=== PATIENT | female | born 2000 | race Caucasian/White ===

== ENCOUNTER → 2020-02-22 | Outpatient (CLI) | payer BC ==
[~2020-02-22] MED LIST: BENADRYL25 MG PO; MOTRIN IB200 M1 PO; NKHM; PREDNISONE10 MG PO
== END | disposition home or self-care (01) ==
LOC: COVID19 15:23
PROVIDERS: ATTEND Internal Medicine
DX: Z20.828 Contact with and (suspected) exposure to other viral communicable diseases (principal)

== ENCOUNTER 2021-08-12 16:39 | Emergency (ER) | payer SELFPAY ==
[~2021-08-12] VITALS: Wt 72.6 kg
[2021-08-12] MEDS ORDERED: CLEOCIN HCL300 MG PO (17:25)
[2021-08-12] MEDS ORDERED: Motrin,Rufen800 MG PO (18:46)
== END 2021-08-12 17:30 | disposition home or self-care (01) ==
LOC: ED 16:39
DX: K04.7 Periapical abscess without sinus (principal); Z88.1 Allergy status to other antibiotic agents

== ENCOUNTER 2022-09-22 14:02 | Emergency (ER) | payer OTHER ==
[~2022-09-22] VITALS: Ht 160 cm; Wt 76.2 kg
[~2022-09-22 14:02] MED LIST changes: +CLEOCIN HCL300 MG PO; +Motrin,Rufen800 MG PO
[2022-09-22 14:56] LABS: BASO % 0.3 % (0.0-1.0); EOS # 0.1 10*3/uL (0.0-0.4); EOS % 0.5 % (1.0-4.0); HEMATOCRIT 43.8 % (37.0-47.0); LYMPH # 1.3 10*3/uL (1.3-4.4); LYMPH % 12.2 % (27.0-41.0); MEAN CELL VOLUME 92.8 fl (81.0-99.0); MEAN CORPUSCULAR HGB 31.4 pg (27.0-31.0); MEAN CORPUSCULAR HGB CONC 33.8 g/dl (33.0-37.0); MEAN PLATELET VOLUME 9.3 fl (9.6-12.3); MONO # 0.6 10*3/uL (0.1-1.0); MONO % 5.4 % (3.0-9.0); NEUT # 8.7 10*3/uL (2.3-7.9); NEUT % 81.4 % (47.0-73.0); PLATELET COUNT AUTOMATED 314 10*3/uL (130-400); RED BLOOD COUNT 4.72 10*6/uL (4.10-5.10); RED CELL DISTRI WIDTH 14.5 % (0-14.5); WHITE BLOOD COUNT 10.7 10*3/uL (4.8-10.8)
[2022-09-22 15:20] LABS: ALKALINE PHOSPHATASE 59 U/L (46-116); BUN 8 mg/dl (9-23); CHLORIDE 106 mmol/L (98-107); POTASSIUM 3.6 mmol/L (3.4-5.1); SGPT/ALT 16 U/L (10-49)
[2022-09-22 15:42] LABS: BILIRUBIN 1+ (Negative); BLOOD 3+ (Negative); CLARITY Turbid (Clear); COLOR Red (Yellow); GLUCOSE Negative (Negative); KETONE Negative (Negative); LEUKO ESTERASE 2+ (Negative); NITRITE Negative (Negative); PH 7.5 (4.5-8.0); SPECIFIC GRAVITY 1.025 (1.001-1.030)
[2022-09-22 15:43] LABS: RBC TNTC rbc/hpf (0-2)
[2022-09-22 15:51] LABS: EPITHELIAL CELLS 0-2
[2022-09-22 15:52] LABS: BACTERIA 2+
[2022-09-22] MEDS ORDERED: MELOXICAM15 MG PO (16:03)
[2022-09-22] MEDS ORDERED: CIPRO500 MG PO (16:03)
[2022-09-22] MEDS ORDERED: ONDANSETRON4 MG SL (16:03)
== END 2022-09-22 16:18 | disposition home or self-care (01) ==
LOC: ED 14:02
PROVIDERS: Emergency Medicine
DX: N93.8 Other specified abnormal uterine and vaginal bleeding (principal); N39.0 Urinary tract infection, site not specified; Z88.1 Allergy status to other antibiotic agents

== ENCOUNTER 2023-02-15 12:27 | Emergency (ER) | payer OTHER ==
[~2023-02-15] VITALS: Ht 167.6 cm; Wt 72.6 kg
[~2023-02-15 12:27] MED LIST changes: +CIPRO500 MG PO; +MELOXICAM15 MG PO; +ONDANSETRON4 MG SL
[2023-02-15 16:53] LABS: HEMATOCRIT 40.3 % (37.0-47.0); MEAN CORPUSCULAR HGB 32.5 pg (27.0-31.0); MEAN CORPUSCULAR HGB CONC 34.2 g/dl (33.0-37.0); MEAN PLATELET VOLUME 9.1 fl (9.6-12.3); PLATELET COUNT AUTOMATED 317 10*3/uL (130-400); RED BLOOD COUNT 4.24 10*6/uL (4.10-5.10); RED CELL DISTRI WIDTH 14.1 % (0-14.5); WHITE BLOOD COUNT 12.2 10*3/uL (4.8-10.8)
[2023-02-15 17:02] LABS: MANUAL DIFF REFLEX YES
[2023-02-15 17:13] LABS: BASOPHILS 1 % (0-1); PLATELET SUFFICIENCY NORMAL (NORMAL); TOTAL CELLS COUNTED 100 #CELLS
[2023-02-15 17:15] LABS: BURR CELLS FEW
[2023-02-15 17:15] LABS: ALKALINE PHOSPHATASE 53 U/L (46-116); BUN 18 mg/dl (9-23); CHLORIDE 106 mmol/L (98-107); LIPASE 27 U/L (12-53); POTASSIUM 3.8 mmol/L (3.4-5.1); SGPT/ALT 11 U/L (5-49); TOTAL PROTEIN 6.8 gm/dL (6.0-8.0)
[2023-02-15 17:19] LABS: BETA-HCG, QUANT < 3.0 mIU/mL (3-10)
[2023-02-15 18:38] LABS: BILIRUBIN Negative (Negative); BLOOD Negative (Negative); CLARITY Clear (Clear); COLOR Yellow (Yellow); GLUCOSE Negative (Negative); KETONE 1+ (Negative); LEUKO ESTERASE Negative (Negative); NITRITE Negative (Negative); PH 5.5 (4.5-8.0); UROBILINOGEN 0.2 E.U./dl (0.0-1.0)
[2023-02-15 18:47] LABS: BACTERIA 2+
[2023-02-15] MEDS ORDERED: ONDANSETRON4 MG SL (20:04)
[2023-02-15] MEDS ORDERED: SEPTDS PO (20:04)
== END 2023-02-15 20:18 | disposition home or self-care (01) ==
LOC: ED 12:27
PROVIDERS: Nurse Practitioner
DX: N39.0 Urinary tract infection, site not specified (principal); N17.9 Acute kidney failure, unspecified; R11.2 Nausea with vomiting, unspecified; Z88.1 Allergy status to other antibiotic agents; Z79.2 Long term (current) use of antibiotics; Z79.899 Other long term (current) drug therapy

== ENCOUNTER 2024-08-21 17:13 | Emergency (ER) | payer SELFPAY ==
[~2024-08-21] VITALS: Wt 76.2 kg
[~2024-08-21 17:13] MED LIST changes: +SEPTDS PO
[2024-08-21] MEDS ORDERED: Ondansetron Hydrochloride 4 MG TAB PO ONE (17:40)
[2024-08-21] MEDS ORDERED: Acetaminophen/Hydrocodone 5 MG/325 MG TABLET PO ONE ×2 (17:40→18:55)
[2024-08-21 18:27] LABS: BILIRUBIN Negative (Negative); BLOOD 3+ (Negative); CLARITY Cloudy (Clear); COLOR Yellow (Yellow); GLUCOSE Negative (Negative); KETONE 1+ (Negative); LEUKO ESTERASE Trace (Negative); NITRITE Negative (Negative); SPECIFIC GRAVITY >= 1.030 (1.001-1.030)
[2024-08-21 18:36] LABS: BACTERIA 2+; RBC 51-100 rbc/hpf (0-2)
== END 2024-08-21 19:15 | disposition home or self-care (01) ==
LOC: ED 17:13
PROVIDERS: Nurse Practitioner Family
DX: N94.6 Dysmenorrhea, unspecified (principal); Z88.1 Allergy status to other antibiotic agents; Z79.899 Other long term (current) drug therapy

== ENCOUNTER 2024-11-28 15:50 | Emergency (ER) | payer SELFPAY ==
[~2024-11-28] VITALS: Ht 167.6 cm; Wt 74.8 kg
[2024-11-28] MEDS ORDERED: Acetaminophen/Oxycodone 5 MG/325 MG TABLET PO ONE (16:05)
[2024-11-28] MEDS ORDERED: CLINDAMYCIN HC300 MG PO (16:09)
[2024-11-28] MEDS ORDERED: CLINDAMYCIN HCL 300 MG CAPSULE PO ONE (16:10)
== END 2024-11-28 16:30 | disposition home or self-care (01) ==
LOC: ED 15:50
DX: K04.7 Periapical abscess without sinus (principal); K02.9 Dental caries, unspecified; F17.290 Nicotine dependence, other tobacco product, uncomplicated; Z88.1 Allergy status to other antibiotic agents

== ENCOUNTER → 2025-01-26 | Outpatient (CLI) | payer OTHER ==
[~2025-01-26] MED LIST changes: +CLINDAMYCIN HC300 MG PO
[2025-01-26 14:12] LABS: MEAN CELL VOLUME 95.3 fl (81.0-99.0); MEAN CORPUSCULAR HGB 32.1 pg (27.0-31.0); MEAN PLATELET VOLUME 9.0 fl (9.6-12.3); NUCLEATED RED BLOOD CELL 0.0 % (0.0-0.0); NUCLEATED RED BLOOD CELL 0.0 10*3/uL (0.0-0.0); PLATELET COUNT AUTOMATED 312.0 10*3/uL (130-400); RED CELL DISTRI WIDTH 13.2 % (0-14.5)
[2025-01-26 14:47] LABS: BUN 11 mg/dl (9-23); FREE T4 1.05 ng/dl (0.89-1.76); GAMMA GLUTAMYL TRANSFERASE 19 U/L (0-38); LDL CHOLESTEROL 61 mg/dL (9-159); SGPT/ALT 13 U/L (5-49)
[2025-01-26 14:48] LABS: VITAMIN D, 25-HYDROXY 34.2 ng/mL (30-100)
== END | disposition home or self-care (01) ==
LOC: LAB 13:40
PROVIDERS: ATTEND Family Medicine
DX: E55.9 Vitamin D deficiency, unspecified (principal); K76.0 Fatty (change of) liver, not elsewhere classified; D64.9 Anemia, unspecified; R05.9 Cough, unspecified; R63.5 Abnormal weight gain; J40 Bronchitis, not specified as acute or chronic; R53.82 Chronic fatigue, unspecified; Z13.220 Encounter for screening for lipoid disorders